=== PATIENT | male | born 1945 | race Caucasian/White ===

== ENCOUNTER 2021-11-14 02:49 | Emergency (ER) | payer MEDICARE, BC ==
[2021-11-14 04:32] LABS: BASO % 0.3 % (0.0-1.0); EOS # 0.2 10^3/uL (0.0-0.5); EOS % 3.4 % (0.0-3.0); HEMATOCRIT 35.4 % (42.0-52.0); HEMOGLOBIN 11.4 g/dl (13.5-17.5); LYMPH # 1.9 10^3/uL (1.5-5.0); LYMPH % 27.8 % (24.0-44.0); MEAN CORPUSCULAR HEMOGLOBIN 30.5 pg (27.0-33.0); MEAN CORPUSCULAR HGB CONC 32.2 g/dl (32.0-36.5); MEAN CORPUSCULAR VOLUME 94.7 fl (80.0-96.0); MONO # 0.7 10^3/uL (0.0-0.8); MONO % 10.6 % (2.0-8.0); NEUTROPHILS # 3.9 10^3/uL (1.5-8.5); NEUTROPHILS % 57.6 % (36.0-66.0); PLATELET COUNT, AUTOMATED 125 10^3/uL (150-450); RED BLOOD COUNT 3.74 10^6/uL (4.30-6.10); WHITE BLOOD COUNT 6.8 10^3/uL (4.0-10.0)
[2021-11-14 05:04] LABS: CALCIUM LEVEL 9.5 MG/DL (8.8-10.2); CREATININE FOR GFR 2.21 MG/DL (0.70-1.30); MAGNESIUM LEVEL 2.3 MG/DL (1.8-2.4); POTASSIUM SERUM 4.4 MEQ/L (3.5-5.1)
[2021-11-14 06:45] VITALS: BP 145/73
== END 2021-11-14 06:51 | disposition home or self-care (01) ==
LOC: M ED 02:49
DX: J69.0 Pneumonitis due to inhalation of food and vomit (principal); K20.80 Other esophagitis without bleeding; E11.9 Type 2 diabetes mellitus without complications; E78.5 Hyperlipidemia, unspecified; I10 Essential (primary) hypertension; N28.9 Disorder of kidney and ureter, unspecified; E03.9 Hypothyroidism, unspecified; F32.A Depression, unspecified; Z89.511 Acquired absence of right leg below knee; Z89.512 Acquired absence of left leg below knee; Z88.8 Allergy status to other drugs, medicaments and biological substances

== ENCOUNTER 2022-02-28 20:04 | Inpatient (IN) | payer MEDICARE, BC ==
[~2022-02-28] VITALS: Ht 132.1 cm; Wt 82.1 kg
[2022-02-28 21:10] LABS: BASO % 0.3 % (0.0-1.0); EOS # 0.2 10^3/uL (0.0-0.5); EOS % 2.5 % (0.0-3.0); HEMATOCRIT 38.7 % (42.0-52.0); HEMOGLOBIN 12.6 g/dl (13.5-17.5); LYMPH # 2.5 10^3/uL (1.5-5.0); LYMPH % 31.9 % (24.0-44.0); MEAN CORPUSCULAR HEMOGLOBIN 28.3 pg (27.0-33.0); MEAN CORPUSCULAR HGB CONC 32.6 g/dl (32.0-36.5); MONO # 0.7 10^3/uL (0.0-0.8); MONO % 9.1 % (2.0-8.0); NEUTROPHILS # 4.3 10^3/uL (1.5-8.5); NEUTROPHILS % 55.9 % (36.0-66.0); PLATELET COUNT, AUTOMATED 154 10^3/uL (150-450); RED BLOOD COUNT 4.45 10^6/uL (4.30-6.10); WHITE BLOOD COUNT 7.7 10^3/uL (4.0-10.0)
[2022-02-28 22:14] LABS: ALBUMIN 3.9 GM/DL (3.2-5.2); ALT/SGPT 27 U/L (12-78); BILIRUBIN,DIRECT 0.1 MG/DL (0.0-0.2); BILIRUBIN,TOTAL 0.5 MG/DL (0.2-1.0); BLOOD UREA NITROGEN 22 MG/DL (7-18); CALCIUM LEVEL 10.3 MG/DL (8.8-10.2); CARBON DIOXIDE LEVEL 24 MEQ/L (21-32); CHLORIDE LEVEL 107 MEQ/L (98-107); CREATININE FOR GFR 1.84 MG/DL (0.70-1.30); ETHYL ALCOHOL (ETHANOL) < 0.003 % (0.000-0.010); GLOMERULAR FILTRATION RATE 38.3 (>42); GLUCOSE, FASTING 61 MG/DL (70-100); POTASSIUM SERUM 3.7 MEQ/L (3.5-5.1); SODIUM LEVEL 138 MEQ/L (136-145); TOTAL PROTEIN 7.4 GM/DL (6.4-8.2)
[2022-02-28] MEDS ORDERED: METO1TAB32 PO (22:28)
[2022-02-28] MEDS ORDERED: ARIP10TA32 PO (22:28)
[2022-02-28] MEDS ORDERED: VENL75CA47 PO (22:28)
[2022-02-28] MEDS ORDERED: GABA-282 PO (22:28)
[2022-02-28] MEDS ORDERED: BUSP10TA PO (22:28)
[2022-02-28] MEDS ORDERED: LORA1TAB4 PO (22:28)
[2022-02-28] MEDS ORDERED: ATOR40TA75 PO (22:28)
[2022-02-28] MEDS ORDERED: med rec comment (22:28)
[2022-02-28] MEDS ORDERED: LEVO100T5 PO (22:28)
[2022-02-28] MEDS ORDERED: OMEP40CA5 PO (22:28)
[2022-02-28] MEDS ORDERED: HOME MED LIST COMPLETE! XX SCH (22:30)
[2022-02-28 23:23] LABS: RSV AMPLIFICATION NEGATIVE (NEGATIVE)
[2022-03-01] MEDS ORDERED: NS 1,000 ML IV SCH (00:10)
[2022-03-01] MEDS: LEVOTHYROXINE 100MCG TABLET (0.1MG) PO SCH (06:00)
[2022-03-01] MEDS: VENLAFAXINE **XR** 75MG CAPSULE PO SCH (08:41)
[2022-03-01] MEDS: ARIPiprazole 10 MG TAB PO SCH (08:41)
[2022-03-01] MEDS: HEPARIN SOD (PORCINE) 5000UNITS/ML 1ML VIAL/SYRINGE SC SCH ×2 (08:42→21:34)
[2022-03-01] MEDS: METOPROLOL SUCC *XL* 25MG TAB (TopROL *XL*) PO SCH (08:42)
[2022-03-01] MEDS: OMEPRAZOLE 20MG CAP PO SCH (08:42)
[2022-03-01] MEDS: ATORVASTATIN 20 MG TAB PO SCH (21:33)
[2022-03-01] MEDS: busPIRone 10 MG TAB PO PRN (21:33)
[2022-03-01 22:00] VITALS: BP 131/63
[2022-03-02 05:11] VITALS: BP 129/89
[2022-03-02] MEDS: LEVOTHYROXINE 100MCG TABLET (0.1MG) PO SCH (06:47)
[2022-03-02] MEDS: busPIRone 10 MG TAB PO PRN (06:47)
[2022-03-02] MEDS: VENLAFAXINE **XR** 75MG CAPSULE PO SCH ×2 (08:20→15:37)
[2022-03-02] MEDS: HEPARIN SOD (PORCINE) 5000UNITS/ML 1ML VIAL/SYRINGE SC SCH ×2 (08:21→20:29)
[2022-03-02] MEDS: ARIPiprazole 10 MG TAB PO SCH ×2 (08:21→15:37)
[2022-03-02] MEDS: OMEPRAZOLE 20MG CAP PO SCH ×2 (08:21→15:37)
[2022-03-02] MEDS: METOPROLOL SUCC *XL* 25MG TAB (TopROL *XL*) PO SCH ×2 (08:22→15:37)
[2022-03-02 09:31] LABS: HEMATOCRIT 38.1 % (42.0-52.0); HEMOGLOBIN 12.4 g/dl (13.5-17.5); MEAN CORPUSCULAR HEMOGLOBIN 28.4 pg (27.0-33.0); MEAN CORPUSCULAR HGB CONC 32.5 g/dl (32.0-36.5); MEAN CORPUSCULAR VOLUME 87.4 fl (80.0-96.0); PLATELET COUNT, AUTOMATED 134 10^3/uL (150-450); RED BLOOD COUNT 4.36 10^6/uL (4.30-6.10); WHITE BLOOD COUNT 7.7 10^3/uL (4.0-10.0)
[2022-03-02 10:10] LABS: ALBUMIN 3.7 GM/DL (3.2-5.2); BILIRUBIN,TOTAL 0.4 MG/DL (0.2-1.0); CALCIUM LEVEL 10.1 MG/DL (8.8-10.2); CREATININE FOR GFR 2.01 MG/DL (0.70-1.30); GLOMERULAR FILTRATION RATE 34.6 (>42); POTASSIUM SERUM 3.9 MEQ/L (3.5-5.1); TOTAL PROTEIN 6.5 GM/DL (6.4-8.2)
[2022-03-02 13:21] VITALS: BP 113/60
[2022-03-02] MEDS: LORazepam 1 MG TAB PO PRN (18:39)
[2022-03-02] MEDS: ATORVASTATIN 20 MG TAB PO SCH (20:29)
[2022-03-02 21:00] VITALS: BP 112/62
[2022-03-03 05:02] VITALS: BP 126/72
[2022-03-03] MEDS: LEVOTHYROXINE 100MCG TABLET (0.1MG) PO SCH (06:38)
[2022-03-03 07:25] LABS: HEMATOCRIT 39.5 % (42.0-52.0); HEMOGLOBIN 12.7 g/dl (13.5-17.5); MEAN CORPUSCULAR HEMOGLOBIN 28.3 pg (27.0-33.0); MEAN CORPUSCULAR HGB CONC 32.2 g/dl (32.0-36.5); PLATELET COUNT, AUTOMATED 140 10^3/uL (150-450); RED BLOOD COUNT 4.49 10^6/uL (4.30-6.10); WHITE BLOOD COUNT 8.8 10^3/uL (4.0-10.0)
[2022-03-03 07:53] LABS: CREATININE FOR GFR 2.18 MG/DL (0.70-1.30); GLOMERULAR FILTRATION RATE 31.5 (>42)
[2022-03-03 07:54] LABS: CALCIUM LEVEL 9.9 MG/DL (8.8-10.2)
[2022-03-03] MEDS: HEPARIN SOD (PORCINE) 5000UNITS/ML 1ML VIAL/SYRINGE SC SCH ×2 (10:43→22:37)
[2022-03-03] MEDS: METOPROLOL SUCC *XL* 25MG TAB (TopROL *XL*) PO SCH ×2 (10:44→13:06)
[2022-03-03] MEDS: ARIPiprazole 10 MG TAB PO SCH ×2 (10:44→13:05)
[2022-03-03] MEDS: VENLAFAXINE **XR** 75MG CAPSULE PO SCH ×2 (10:44→13:05)
[2022-03-03] MEDS: OMEPRAZOLE 20MG CAP PO SCH ×2 (10:44→13:05)
[2022-03-03 14:00] VITALS: BP_SYST 119; BP_SYST 151; BP_DIAS 69; BP_DIAS 70
[2022-03-03] MEDS: cefTRIAXone SOD 1 GM in D5W MINI-BAG PLUS 50 ML IV SCH (17:27)
[2022-03-03] MEDS: NS 1,000 ML IV SCH (17:27)
[2022-03-03 22:00] VITALS: BP 127/74
[2022-03-03] MEDS: ATORVASTATIN 20 MG TAB PO SCH ×2 (22:20→22:36)
[2022-03-03] MEDS: LORazepam 1 MG TAB PO PRN (22:38)
[2022-03-04] MEDS: NS 1,000 ML IV SCH ×2 (00:31→08:25)
[2022-03-04 02:00] VITALS: BP 113/71
[2022-03-04 06:00] VITALS: BP 139/64
[2022-03-04] MEDS: LEVOTHYROXINE 100MCG TABLET (0.1MG) PO SCH ×2 (06:00→06:26)
[2022-03-04 07:13] LABS: HEMATOCRIT 40.4 % (42.0-52.0); HEMOGLOBIN 13.1 g/dl (13.5-17.5); MEAN CORPUSCULAR HEMOGLOBIN 28.4 pg (27.0-33.0); MEAN CORPUSCULAR HGB CONC 32.4 g/dl (32.0-36.5); MEAN CORPUSCULAR VOLUME 87.4 fl (80.0-96.0); PLATELET COUNT, AUTOMATED 159 10^3/uL (150-450); RED BLOOD COUNT 4.62 10^6/uL (4.30-6.10); WHITE BLOOD COUNT 9.8 10^3/uL (4.0-10.0)
[2022-03-04 07:58] LABS: CALCIUM LEVEL 9.7 MG/DL (8.8-10.2); CREATININE FOR GFR 2.36 MG/DL (0.70-1.30); GLOMERULAR FILTRATION RATE 28.7 (>42); POTASSIUM SERUM 4.1 MEQ/L (3.5-5.1)
[2022-03-04] MEDS: VENLAFAXINE **XR** 75MG CAPSULE PO SCH (08:27)
[2022-03-04] MEDS: OMEPRAZOLE 20MG CAP PO SCH (08:27)
[2022-03-04] MEDS: METOPROLOL SUCC *XL* 25MG TAB (TopROL *XL*) PO SCH (08:28)
[2022-03-04] MEDS: ARIPiprazole 10 MG TAB PO SCH (08:28)
[2022-03-04 08:34] VITALS: BP 153/83
[2022-03-04] MEDS: HEPARIN SOD (PORCINE) 5000UNITS/ML 1ML VIAL/SYRINGE SC SCH ×2 (08:37→21:45)
[2022-03-04 12:35] LABS: FREE THYROXINE INDEX 3.9 % (1.4-3.8); THYROID STIMULATING HORMONE 0.247 uIU/ML (0.358-3.740); THYROXINE (T4) 10.3 UG/DL (4.5-12.0)
[2022-03-04] MEDS: D5W/0.45% SODIUM CHLORIDE 1,000 ML IV SCH ×3 (13:14→22:59)
[2022-03-04 14:02] VITALS: BP 148/82
[2022-03-04] MEDS: cefTRIAXone SOD 1 GM in D5W MINI-BAG PLUS 50 ML IV SCH (17:37)
[2022-03-04] MEDS: buPROPion **XL** TABLET 150MG (WELLBUTRIN XL) PO SCH (18:57)
[2022-03-04 20:40] VITALS: BP 128/64
[2022-03-04] MEDS: ATORVASTATIN 20 MG TAB PO SCH (21:46)
[2022-03-04] MEDS: LORazepam 1 MG TAB PO PRN (23:33)
[2022-03-05 06:00] VITALS: BP 125/65
[2022-03-05] MEDS: LEVOTHYROXINE 100MCG TABLET (0.1MG) PO SCH (06:14)
[2022-03-05] MEDS: D5W/0.45% SODIUM CHLORIDE 1,000 ML IV SCH (06:15)
[2022-03-05 07:26] LABS: HEMATOCRIT 35.3 % (42.0-52.0); HEMOGLOBIN 11.2 g/dl (13.5-17.5); MEAN CORPUSCULAR HEMOGLOBIN 28.7 pg (27.0-33.0); MEAN CORPUSCULAR HGB CONC 31.7 g/dl (32.0-36.5); MEAN CORPUSCULAR VOLUME 90.5 fl (80.0-96.0); PLATELET COUNT, AUTOMATED 131 10^3/uL (150-450); WHITE BLOOD COUNT 6.9 10^3/uL (4.0-10.0)
[2022-03-05 07:44] LABS: CALCIUM LEVEL 9.2 MG/DL (8.8-10.2); CREATININE FOR GFR 1.95 MG/DL (0.70-1.30); GLOMERULAR FILTRATION RATE 35.8 (>42); POTASSIUM SERUM 3.4 MEQ/L (3.5-5.1)
[2022-03-05] MEDS: VENLAFAXINE **XR** 75MG CAPSULE PO SCH (09:25)
[2022-03-05] MEDS: buPROPion **XL** TABLET 150MG (WELLBUTRIN XL) PO SCH (09:25)
[2022-03-05] MEDS: HEPARIN SOD (PORCINE) 5000UNITS/ML 1ML VIAL/SYRINGE SC SCH ×3 (09:25→21:29)
[2022-03-05] MEDS: OMEPRAZOLE 20MG CAP PO SCH (09:26)
[2022-03-05] MEDS: CIPROFLOXACIN 400 MG in IV 1 EA IV SCH ×2 (09:27→21:29)
[2022-03-05] MEDS: METOPROLOL SUCC *XL* 25MG TAB (TopROL *XL*) PO SCH (09:28)
[2022-03-05] MEDS: ARIPiprazole 10 MG TAB PO SCH (09:32)
[2022-03-05] MEDS: KCL 20MEQ IN D5W 1000ML 1,000 ML IV SCH ×2 (10:43→23:42)
[2022-03-05 15:14] VITALS: BP 116/55
[2022-03-05 19:46] VITALS: BP 128/69
[2022-03-05 20:00] VITALS: BP 128/69
[2022-03-05] MEDS: ATORVASTATIN 20 MG TAB PO SCH (21:28)
[2022-03-06 04:00] VITALS: BP 140/73
[2022-03-06] MEDS: LEVOTHYROXINE 100MCG TABLET (0.1MG) PO SCH ×2 (05:19→05:25)
[2022-03-06 06:39] LABS: HEMOGLOBIN 10.3 g/dl (13.5-17.5); MEAN CORPUSCULAR HEMOGLOBIN 28.7 pg (27.0-33.0); MEAN CORPUSCULAR HGB CONC 32.2 g/dl (32.0-36.5); MEAN CORPUSCULAR VOLUME 89.1 fl (80.0-96.0); PLATELET COUNT, AUTOMATED 102 10^3/uL (150-450); RED BLOOD COUNT 3.59 10^6/uL (4.30-6.10); WHITE BLOOD COUNT 6.3 10^3/uL (4.0-10.0)
[2022-03-06 07:10] LABS: CALCIUM LEVEL 8.8 MG/DL (8.8-10.2); CREATININE FOR GFR 1.72 MG/DL (0.70-1.30); GLOMERULAR FILTRATION RATE 41.4 (>42); POTASSIUM SERUM 3.8 MEQ/L (3.5-5.1)
[2022-03-06] MEDS: CIPROFLOXACIN 400 MG in IV 1 EA IV SCH ×2 (08:19→20:17)
[2022-03-06] MEDS: KCL 20MEQ IN D5W 1000ML 1,000 ML IV SCH ×2 (08:20→16:00)
[2022-03-06] MEDS: METOPROLOL SUCC *XL* 25MG TAB (TopROL *XL*) PO SCH (08:22)
[2022-03-06] MEDS: HEPARIN SOD (PORCINE) 5000UNITS/ML 1ML VIAL/SYRINGE SC SCH ×2 (08:23→10:30)
[2022-03-06] MEDS: OMEPRAZOLE 20MG CAP PO SCH (08:24)
[2022-03-06] MEDS: buPROPion **XL** TABLET 150MG (WELLBUTRIN XL) PO SCH (08:24)
[2022-03-06] MEDS: VENLAFAXINE **XR** 75MG CAPSULE PO SCH (08:24)
[2022-03-06] MEDS: ARIPiprazole 10 MG TAB PO SCH (08:24)
[2022-03-06 14:00] VITALS: BP 119/57
[2022-03-06 20:00] VITALS: BP 109/57
[2022-03-06] MEDS: ATORVASTATIN 20 MG TAB PO SCH (20:17)
[2022-03-07] MEDS: KCL 20MEQ IN D5W 1000ML 1,000 ML IV SCH (01:02)
[2022-03-07 06:00] VITALS: BP 131/63
[2022-03-07] MEDS: LEVOTHYROXINE 100MCG TABLET (0.1MG) PO SCH (06:19)
[2022-03-07 07:35] LABS: HEMATOCRIT 33.1 % (42.0-52.0); HEMOGLOBIN 10.8 g/dl (13.5-17.5); MEAN CORPUSCULAR HEMOGLOBIN 28.9 pg (27.0-33.0); MEAN CORPUSCULAR HGB CONC 32.6 g/dl (32.0-36.5); MEAN CORPUSCULAR VOLUME 88.5 fl (80.0-96.0); PLATELET COUNT, AUTOMATED 118 10^3/uL (150-450); RED BLOOD COUNT 3.74 10^6/uL (4.30-6.10); WHITE BLOOD COUNT 6.5 10^3/uL (4.0-10.0)
[2022-03-07 08:12] LABS: CALCIUM LEVEL 9.3 MG/DL (8.8-10.2); CREATININE FOR GFR 1.67 MG/DL (0.70-1.30); GLOMERULAR FILTRATION RATE 42.8 (>42); POTASSIUM SERUM 4.1 MEQ/L (3.5-5.1)
[2022-03-07] MEDS: buPROPion **XL** TABLET 150MG (WELLBUTRIN XL) PO SCH (09:13)
[2022-03-07] MEDS: CIPROFLOXACIN 400 MG in IV 1 EA IV SCH ×2 (09:13→21:54)
[2022-03-07] MEDS: METOPROLOL SUCC *XL* 25MG TAB (TopROL *XL*) PO SCH (09:14)
[2022-03-07] MEDS: VENLAFAXINE **XR** 75MG CAPSULE PO SCH (09:15)
[2022-03-07] MEDS: ARIPiprazole 10 MG TAB PO SCH (09:15)
[2022-03-07] MEDS: OMEPRAZOLE 20MG CAP PO SCH (09:15)
[2022-03-07 14:00] VITALS: BP 124/61
[2022-03-07] MEDS ORDERED: COVID-19 VAC, BV (MODERNA)/PF 50 MCG/0.5 ML VIAL (EUA) IM.IMMUN ONE (14:00)
[2022-03-07 21:54] VITALS: BP 132/69
[2022-03-07] MEDS: ATORVASTATIN 20 MG TAB PO SCH (21:54)
[2022-03-08] MEDS: LEVOTHYROXINE 100MCG TABLET (0.1MG) PO SCH (05:28)
[2022-03-08 05:39] VITALS: BP 128/71
[2022-03-08 06:58] LABS: HEMOGLOBIN 11.2 g/dl (13.5-17.5); MEAN CORPUSCULAR HEMOGLOBIN 28.6 pg (27.0-33.0); MEAN CORPUSCULAR VOLUME 89.5 fl (80.0-96.0); PLATELET COUNT, AUTOMATED 123 10^3/uL (150-450); RED BLOOD COUNT 3.91 10^6/uL (4.30-6.10); WHITE BLOOD COUNT 7.4 10^3/uL (4.0-10.0)
[2022-03-08 07:21] LABS: CALCIUM LEVEL 9.7 MG/DL (8.8-10.2); CREATININE FOR GFR 1.74 MG/DL (0.70-1.30); GLOMERULAR FILTRATION RATE 40.8 (>42); POTASSIUM SERUM 4.1 MEQ/L (3.5-5.1)
[2022-03-08] MEDS: VENLAFAXINE **XR** 75MG CAPSULE PO SCH (09:43)
[2022-03-08] MEDS: ARIPiprazole 10 MG TAB PO SCH (09:43)
[2022-03-08] MEDS: CIPROFLOXACIN 400 MG in IV 1 EA IV SCH (09:43)
[2022-03-08] MEDS: OMEPRAZOLE 20MG CAP PO SCH (09:43)
[2022-03-08] MEDS: buPROPion **XL** TABLET 150MG (WELLBUTRIN XL) PO SCH (09:43)
[2022-03-08] MEDS: METOPROLOL SUCC *XL* 25MG TAB (TopROL *XL*) PO SCH (09:44)
[2022-03-08 12:08] LABS: ANTINUCLEAR ANTIBODIES DIRECT Negative (Negative)
[2022-03-08 14:00] VITALS: BP 163/85
[2022-03-08] MEDS: CIPROFLOXACIN 250MG TAB PO SCH (17:34)
[2022-03-08] MEDS: ATORVASTATIN 20 MG TAB PO SCH (21:33)
[2022-03-08 21:34] VITALS: BP 132/62
[2022-03-09 05:37] VITALS: BP 132/62
[2022-03-09] MEDS: CIPROFLOXACIN 250MG TAB PO SCH ×2 (05:53→17:49)
[2022-03-09] MEDS: LEVOTHYROXINE 100MCG TABLET (0.1MG) PO SCH (05:53)
[2022-03-09 07:55] LABS: HEMATOCRIT 36.2 % (42.0-52.0); HEMOGLOBIN 11.3 g/dl (13.5-17.5); MEAN CORPUSCULAR HGB CONC 31.2 g/dl (32.0-36.5); MEAN CORPUSCULAR VOLUME 89.8 fl (80.0-96.0); PLATELET COUNT, AUTOMATED 121 10^3/uL (150-450); RED BLOOD COUNT 4.03 10^6/uL (4.30-6.10); WHITE BLOOD COUNT 6.2 10^3/uL (4.0-10.0)
[2022-03-09 08:27] LABS: CALCIUM LEVEL 9.7 MG/DL (8.8-10.2); CREATININE FOR GFR 1.84 MG/DL (0.70-1.30); GLOMERULAR FILTRATION RATE 38.3 (>42); POTASSIUM SERUM 4.1 MEQ/L (3.5-5.1)
[2022-03-09 09:00] VITALS: BP 109/53
[2022-03-09] MEDS: METOPROLOL SUCC *XL* 25MG TAB (TopROL *XL*) PO SCH (09:00)
[2022-03-09] MEDS: VENLAFAXINE **XR** 75MG CAPSULE PO SCH (09:01)
[2022-03-09] MEDS: ARIPiprazole 10 MG TAB PO SCH (09:01)
[2022-03-09] MEDS: OMEPRAZOLE 20MG CAP PO SCH (09:01)
[2022-03-09] MEDS: buPROPion **XL** TABLET 150MG (WELLBUTRIN XL) PO SCH (09:01)
[2022-03-09] MEDS: ATORVASTATIN 20 MG TAB PO SCH (19:44)
[2022-03-09] MEDS: ACETAMINOPHEN TAB 650MG DOSE (2X325MG) PO PRN (19:48)
[2022-03-10] MEDS: LEVOTHYROXINE 100MCG TABLET (0.1MG) PO SCH (05:51)
[2022-03-10] MEDS: CIPROFLOXACIN 250MG TAB PO SCH ×2 (05:51→17:53)
[2022-03-10 06:00] VITALS: BP 133/83
[2022-03-10 07:04] LABS: HEMATOCRIT 36.9 % (42.0-52.0); MEAN CORPUSCULAR HEMOGLOBIN 28.6 pg (27.0-33.0); MEAN CORPUSCULAR HGB CONC 32.5 g/dl (32.0-36.5); MEAN CORPUSCULAR VOLUME 88.1 fl (80.0-96.0); PLATELET COUNT, AUTOMATED 126 10^3/uL (150-450); RED BLOOD COUNT 4.19 10^6/uL (4.30-6.10); WHITE BLOOD COUNT 6.9 10^3/uL (4.0-10.0)
[2022-03-10 07:24] LABS: CALCIUM LEVEL 9.9 MG/DL (8.8-10.2); CREATININE FOR GFR 2.18 MG/DL (0.70-1.30); GLOMERULAR FILTRATION RATE 31.5 (>42); POTASSIUM SERUM 4.2 MEQ/L (3.5-5.1)
[2022-03-10] MEDS: buPROPion **XL** TABLET 150MG (WELLBUTRIN XL) PO SCH (07:49)
[2022-03-10] MEDS: VENLAFAXINE **XR** 75MG CAPSULE PO SCH (07:49)
[2022-03-10] MEDS: ARIPiprazole 10 MG TAB PO SCH (07:49)
[2022-03-10] MEDS: METOPROLOL SUCC *XL* 25MG TAB (TopROL *XL*) PO SCH (07:50)
[2022-03-10] MEDS: OMEPRAZOLE 20MG CAP PO SCH (07:50)
[2022-03-10] MEDS: ATORVASTATIN 20 MG TAB PO SCH (21:36)
[2022-03-11] VITALS (8 sets, daily range): BP systolic 99–129; BP diastolic 56–70
[2022-03-11 05:53] LABS: HEMATOCRIT 35.3 % (42.0-52.0); HEMOGLOBIN 11.5 g/dl (13.5-17.5); MEAN CORPUSCULAR HEMOGLOBIN 28.7 pg (27.0-33.0); MEAN CORPUSCULAR HGB CONC 32.6 g/dl (32.0-36.5); PLATELET COUNT, AUTOMATED 135 10^3/uL (150-450); RED BLOOD COUNT 4.01 10^6/uL (4.30-6.10); WHITE BLOOD COUNT 7.4 10^3/uL (4.0-10.0)
[2022-03-11] MEDS: LEVOTHYROXINE 100MCG TABLET (0.1MG) PO SCH (06:13)
[2022-03-11] MEDS: CIPROFLOXACIN 250MG TAB PO SCH (06:13)
[2022-03-11 06:30] LABS: CALCIUM LEVEL 9.7 MG/DL (8.8-10.2); CREATININE FOR GFR 2.31 MG/DL (0.70-1.30); GLOMERULAR FILTRATION RATE 29.4 (>42); POTASSIUM SERUM 4.1 MEQ/L (3.5-5.1)
[2022-03-11] MEDS: OMEPRAZOLE 20MG CAP PO SCH (08:38)
[2022-03-11] MEDS: VENLAFAXINE **XR** 75MG CAPSULE PO SCH (08:38)
[2022-03-11] MEDS: ARIPiprazole 10 MG TAB PO SCH (08:38)
[2022-03-11] MEDS: buPROPion **XL** TABLET 150MG (WELLBUTRIN XL) PO SCH (08:38)
[2022-03-11] MEDS: METOPROLOL SUCC *XL* 25MG TAB (TopROL *XL*) PO SCH (08:39)
[2022-03-11] MEDS ORDERED: BISACODYL 5 MG TAB PO PRN (10:45)
[2022-03-11] MEDS ORDERED: MIRALAX *UNIT DOSE* 17GM PACKET PO PRN (10:45)
[2022-03-11] MEDS ORDERED: MOM 30ML SUSPENSION UDC PO PRN (10:45)
[2022-03-11] MEDS ORDERED: SENOKOT S TAB PO PRN (10:45)
[2022-03-11] MEDS: NS 0.45% 1,000 ML IV SCH ×2 (12:09→20:59)
[2022-03-11 14:12] LABS: HEMATOCRIT 35.7 % (42.0-52.0); HEMOGLOBIN 11.5 g/dl (13.5-17.5)
[2022-03-11 14:24] LABS: INR 1.08; PROTHROMBIN TIME 14.4 SECONDS (12.7-14.5)
[2022-03-11 14:25] LABS: PARTIAL THROMBOPLASTIN TIME 38.4 SECONDS (25.9-37.0)
[2022-03-11] MEDS ORDERED: GLUCAGON INJ 1MG VIAL SC PRN (14:40)
[2022-03-11] MEDS ORDERED: DEXTROSE 50% 50 ML SYRINGE IV PRN (14:40)
[2022-03-11] MEDS ORDERED: GLUCOSE 4GM CHEW TABLET PO PRN (14:40)
[2022-03-11 15:32] LABS: HEMOGLOBIN A1c 5.5 %
[2022-03-11] MEDS ORDERED: NALOXONE INJ 0.4MG/1ML VIAL (J2310 PER 1MG) IV PRN (15:55)
[2022-03-11] MEDS ORDERED: HYDROMORPHONE HCL 0.5 MG/ 0.5 ML SYRINGE (J1170 PER 1) IV ONE (16:15)
[2022-03-11] MEDS ORDERED: LIDOCAINE 2% 5ML JELLY UROJET As Ordered ONE (16:25)
[2022-03-11] MEDS ORDERED: fentaNYL 100 MCG/2 ML INJECTION As Ordered ONE (16:35)
[2022-03-11] MEDS ORDERED: MIDAZOLAM INJ 2MG/2ML VIAL (J2250 PER 1MG) As Ordered ONE (16:35)
[2022-03-11] MEDS ORDERED: BELLADONNA 16.2mg/OPIUM 60mg 1 EA SUPP PR PRN (16:35)
[2022-03-11] MEDS ORDERED: ceFAZolin SOD 2 GM in IV 1 EA IV ONE (17:00)
[2022-03-11] MEDS: INSULIN LISPRO (NovoLOG) PER UNIT SC SCH ×2 (17:30→21:00)
[2022-03-11 19:14] LABS: HEMATOCRIT 34.3 % (42.0-52.0); HEMOGLOBIN 11.1 g/dl (13.5-17.5)
[2022-03-11 19:53] LABS: CALCIUM LEVEL 9.3 MG/DL (8.8-10.2); CREATININE FOR GFR 2.97 MG/DL (0.70-1.30); POTASSIUM SERUM 5.1 MEQ/L (3.5-5.1)
[2022-03-11] MEDS: AUGMENTIN 500MG TAB PO SCH (21:00)
[2022-03-11] MEDS: ATORVASTATIN 20 MG TAB PO SCH (21:00)
[2022-03-11] MEDS: LORazepam 1 MG TAB PO PRN (21:00)
[2022-03-11] MEDS ORDERED: AMOXICILLIN 875 MG TAB PO SCH (21:00)
[2022-03-12] VITALS: BP 112/70
[2022-03-12] MEDS: MORPHINE 2 MG/ML 1ML VIAL IV PRN ×2 (00:31→05:51)
[2022-03-12 02:12] LABS: HEMOGLOBIN 9.6 g/dl (13.5-17.5)
[2022-03-12 04:00] VITALS: BP 138/63
[2022-03-12] MEDS: LEVOTHYROXINE 100MCG TABLET (0.1MG) PO SCH (05:50)
[2022-03-12] MEDS: NS 0.45% 1,000 ML IV SCH ×2 (05:55→17:39)
[2022-03-12] MEDS: INSULIN LISPRO (NovoLOG) PER UNIT SC SCH ×4 (07:30→21:00)
[2022-03-12 08:00] VITALS: BP 134/65
[2022-03-12 08:22] LABS: HEMATOCRIT 29.1 % (42.0-52.0); MEAN CORPUSCULAR HEMOGLOBIN 28.2 pg (27.0-33.0); MEAN CORPUSCULAR HGB CONC 30.9 g/dl (32.0-36.5); MEAN CORPUSCULAR VOLUME 91.2 fl (80.0-96.0); PLATELET COUNT, AUTOMATED 132 10^3/uL (150-450); RED BLOOD COUNT 3.19 10^6/uL (4.30-6.10); WHITE BLOOD COUNT 9.5 10^3/uL (4.0-10.0)
[2022-03-12] MEDS: OMEPRAZOLE 20MG CAP PO SCH (09:47)
[2022-03-12] MEDS: VENLAFAXINE **XR** 75MG CAPSULE PO SCH (09:47)
[2022-03-12] MEDS: METOPROLOL SUCC *XL* 25MG TAB (TopROL *XL*) PO SCH (09:48)
[2022-03-12] MEDS: AUGMENTIN 500MG TAB PO SCH (09:48)
[2022-03-12] MEDS: buPROPion **XL** TABLET 150MG (WELLBUTRIN XL) PO SCH (09:48)
[2022-03-12] MEDS: ARIPiprazole 10 MG TAB PO SCH (09:48)
[2022-03-12 12:00] VITALS: BP 100/51
[2022-03-12 13:55] LABS: HEMATOCRIT 28.2 % (42.0-52.0); HEMOGLOBIN 8.9 g/dl (13.5-17.5)
[2022-03-12 14:23] LABS: CALCIUM LEVEL 8.8 MG/DL (8.8-10.2); CREATININE FOR GFR 2.46 MG/DL (0.70-1.30); GLOMERULAR FILTRATION RATE 27.4 (>42); POTASSIUM SERUM 4.3 MEQ/L (3.5-5.1)
[2022-03-12] MEDS: ACETAMINOPHEN TAB 650MG DOSE (2X325MG) PO PRN ×2 (14:48→21:53)
[2022-03-12 15:59] VITALS: BP 100/52
[2022-03-12 19:43] VITALS: BP 110/58
[2022-03-12 20:03] LABS: HEMATOCRIT 25.3 % (42.0-52.0)
[2022-03-12] MEDS: ATORVASTATIN 20 MG TAB PO SCH (21:53)
[2022-03-12 22:55] LABS: ALBUMIN 2.9 GM/DL (3.2-5.2); PHOSPHORUS LEVEL 3.8 MG/DL (2.5-4.9)
[2022-03-13] VITALS (9 sets, daily range): BP systolic 101–128; BP diastolic 51–64
[2022-03-13] MEDS: NS 0.45% 1,000 ML IV SCH (01:38)
[2022-03-13] MEDS: LEVOTHYROXINE 100MCG TABLET (0.1MG) PO SCH (05:25)
[2022-03-13 06:21] LABS: HEMATOCRIT 23.4 % (42.0-52.0); HEMOGLOBIN 7.3 g/dl (13.5-17.5); MEAN CORPUSCULAR HEMOGLOBIN 28.5 pg (27.0-33.0); MEAN CORPUSCULAR HGB CONC 31.2 g/dl (32.0-36.5); MEAN CORPUSCULAR VOLUME 91.4 fl (80.0-96.0); PLATELET COUNT, AUTOMATED 108 10^3/uL (150-450); RED BLOOD COUNT 2.56 10^6/uL (4.30-6.10); WHITE BLOOD COUNT 6.6 10^3/uL (4.0-10.0)
[2022-03-13 06:45] LABS: CALCIUM LEVEL 8.6 MG/DL (8.8-10.2); CREATININE FOR GFR 2.07 MG/DL (0.70-1.30); GLOMERULAR FILTRATION RATE 33.4 (>42); POTASSIUM SERUM 3.7 MEQ/L (3.5-5.1)
[2022-03-13] MEDS: INSULIN LISPRO (NovoLOG) PER UNIT SC SCH ×4 (08:31→20:25)
[2022-03-13] MEDS: METOPROLOL SUCC *XL* 25MG TAB (TopROL *XL*) PO SCH (08:36)
[2022-03-13] MEDS: buPROPion **XL** TABLET 150MG (WELLBUTRIN XL) PO SCH (09:22)
[2022-03-13] MEDS: ARIPiprazole 10 MG TAB PO SCH (09:22)
[2022-03-13] MEDS: VENLAFAXINE **XR** 75MG CAPSULE PO SCH (09:23)
[2022-03-13] MEDS: OMEPRAZOLE 20MG CAP PO SCH (09:24)
[2022-03-13] MEDS: LORazepam 1 MG TAB PO PRN (13:04)
[2022-03-13] MEDS: ATORVASTATIN 20 MG TAB PO SCH (20:25)
[2022-03-14 05:49] LABS: HEMATOCRIT 28.5 % (42.0-52.0); MEAN CORPUSCULAR HEMOGLOBIN 28.5 pg (27.0-33.0); MEAN CORPUSCULAR HGB CONC 31.6 g/dl (32.0-36.5); MEAN CORPUSCULAR VOLUME 90.2 fl (80.0-96.0); PLATELET COUNT, AUTOMATED 123 10^3/uL (150-450); RED BLOOD COUNT 3.16 10^6/uL (4.30-6.10); WHITE BLOOD COUNT 5.9 10^3/uL (4.0-10.0)
[2022-03-14] MEDS: LEVOTHYROXINE 100MCG TABLET (0.1MG) PO SCH (05:52)
[2022-03-14 06:00] VITALS: BP 117/63
[2022-03-14 06:17] LABS: CALCIUM LEVEL 9.2 MG/DL (8.8-10.2); CREATININE FOR GFR 1.83 MG/DL (0.70-1.30); GLOMERULAR FILTRATION RATE 38.5 (>42); POTASSIUM SERUM 3.8 MEQ/L (3.5-5.1)
[2022-03-14] MEDS: INSULIN LISPRO (NovoLOG) PER UNIT SC SCH ×4 (07:30→21:00)
[2022-03-14 08:00] VITALS: BP 107/51
[2022-03-14] MEDS: buPROPion **XL** TABLET 150MG (WELLBUTRIN XL) PO SCH (08:42)
[2022-03-14] MEDS: VENLAFAXINE **XR** 75MG CAPSULE PO SCH (08:42)
[2022-03-14] MEDS: OMEPRAZOLE 20MG CAP PO SCH (08:42)
[2022-03-14] MEDS: ARIPiprazole 10 MG TAB PO SCH (08:42)
[2022-03-14 16:00] VITALS: BP 128/60
[2022-03-14 20:00] VITALS: BP 113/57
[2022-03-14] MEDS: ATORVASTATIN 20 MG TAB PO SCH (21:00)
[2022-03-15 04:00] VITALS: BP 141/70
[2022-03-15] MEDS: LEVOTHYROXINE 100MCG TABLET (0.1MG) PO SCH (06:00)
[2022-03-15 07:06] LABS: HEMATOCRIT 31.5 % (42.0-52.0); HEMOGLOBIN 10.5 g/dl (13.5-17.5); MEAN CORPUSCULAR HEMOGLOBIN 28.7 pg (27.0-33.0); MEAN CORPUSCULAR HGB CONC 33.3 g/dl (32.0-36.5); MEAN CORPUSCULAR VOLUME 86.1 fl (80.0-96.0); PLATELET COUNT, AUTOMATED 178 10^3/uL (150-450); RED BLOOD COUNT 3.66 10^6/uL (4.30-6.10)
[2022-03-15 07:27] VITALS: BP 144/68
[2022-03-15 07:40] LABS: CALCIUM LEVEL 10.4 MG/DL (8.8-10.2); CREATININE FOR GFR 1.92 MG/DL (0.70-1.30); GLOMERULAR FILTRATION RATE 36.4 (>42); POTASSIUM SERUM 4.2 MEQ/L (3.5-5.1)
[2022-03-15] MEDS: ARIPiprazole 10 MG TAB PO SCH (08:44)
[2022-03-15] MEDS: VENLAFAXINE **XR** 75MG CAPSULE PO SCH (08:44)
[2022-03-15] MEDS: OMEPRAZOLE 20MG CAP PO SCH (08:45)
[2022-03-15] MEDS: buPROPion **XL** TABLET 150MG (WELLBUTRIN XL) PO SCH (08:45)
[2022-03-15] MEDS: INSULIN LISPRO (NovoLOG) PER UNIT SC SCH ×4 (08:46→21:00)
[2022-03-15] MEDS: MIRALAX *UNIT DOSE* 17GM PACKET PO SCH (13:34)
[2022-03-15] MEDS: SENOKOT S TAB PO SCH ×2 (13:35→20:23)
[2022-03-15] MEDS: ATORVASTATIN 20 MG TAB PO SCH (20:24)
[2022-03-15 21:06] VITALS: BP 118/71
[2022-03-16 05:58] LABS: HEMATOCRIT 30.7 % (42.0-52.0); HEMOGLOBIN 9.9 g/dl (13.5-17.5); MEAN CORPUSCULAR HEMOGLOBIN 28.6 pg (27.0-33.0); MEAN CORPUSCULAR HGB CONC 32.2 g/dl (32.0-36.5); MEAN CORPUSCULAR VOLUME 88.7 fl (80.0-96.0); PLATELET COUNT, AUTOMATED 160 10^3/uL (150-450); RED BLOOD COUNT 3.46 10^6/uL (4.30-6.10); WHITE BLOOD COUNT 7.1 10^3/uL (4.0-10.0)
[2022-03-16 06:34] LABS: CALCIUM LEVEL 9.4 MG/DL (8.8-10.2); CREATININE FOR GFR 1.77 MG/DL (0.70-1.30); POTASSIUM SERUM 4.1 MEQ/L (3.5-5.1)
[2022-03-16] MEDS: LEVOTHYROXINE 100MCG TABLET (0.1MG) PO SCH (06:37)
[2022-03-16 07:46] VITALS: BP 131/63
[2022-03-16] MEDS: SENOKOT S TAB PO SCH ×2 (08:42→20:32)
[2022-03-16] MEDS: ARIPiprazole 10 MG TAB PO SCH (08:42)
[2022-03-16] MEDS: INSULIN LISPRO (NovoLOG) PER UNIT SC SCH ×4 (08:42→20:29)
[2022-03-16] MEDS: MIRALAX *UNIT DOSE* 17GM PACKET PO SCH (08:42)
[2022-03-16] MEDS: buPROPion **XL** TABLET 150MG (WELLBUTRIN XL) PO SCH (08:43)
[2022-03-16] MEDS: OMEPRAZOLE 20MG CAP PO SCH (08:43)
[2022-03-16] MEDS: VENLAFAXINE **XR** 75MG CAPSULE PO SCH (08:43)
[2022-03-16 14:03] VITALS: BP 112/54
[2022-03-16] MEDS: ATORVASTATIN 20 MG TAB PO SCH (20:32)
[2022-03-17] MEDS: LEVOTHYROXINE 100MCG TABLET (0.1MG) PO SCH (05:48)
[2022-03-17 06:00] VITALS: BP 119/65
[2022-03-17 06:09] LABS: HEMATOCRIT 31.5 % (42.0-52.0); HEMOGLOBIN 10.1 g/dl (13.5-17.5); MEAN CORPUSCULAR HEMOGLOBIN 28.4 pg (27.0-33.0); MEAN CORPUSCULAR HGB CONC 32.1 g/dl (32.0-36.5); MEAN CORPUSCULAR VOLUME 88.5 fl (80.0-96.0); PLATELET COUNT, AUTOMATED 161 10^3/uL (150-450); RED BLOOD COUNT 3.56 10^6/uL (4.30-6.10); WHITE BLOOD COUNT 7.5 10^3/uL (4.0-10.0)
[2022-03-17 06:43] LABS: CALCIUM LEVEL 9.4 MG/DL (8.8-10.2); CREATININE FOR GFR 1.77 MG/DL (0.70-1.30); POTASSIUM SERUM 4.1 MEQ/L (3.5-5.1)
[2022-03-17] MEDS: INSULIN LISPRO (NovoLOG) PER UNIT SC SCH ×4 (07:30→20:52)
[2022-03-17] MEDS: MIRALAX *UNIT DOSE* 17GM PACKET PO SCH (09:37)
[2022-03-17] MEDS: SENOKOT S TAB PO SCH ×2 (09:37→20:00)
[2022-03-17] MEDS: buPROPion **XL** TABLET 150MG (WELLBUTRIN XL) PO SCH (09:37)
[2022-03-17] MEDS: OMEPRAZOLE 20MG CAP PO SCH (09:37)
[2022-03-17] MEDS: VENLAFAXINE **XR** 75MG CAPSULE PO SCH (09:37)
[2022-03-17] MEDS: ARIPiprazole 10 MG TAB PO SCH (09:38)
[2022-03-17] MEDS: ATORVASTATIN 20 MG TAB PO SCH (20:00)
[2022-03-18] MEDS: LEVOTHYROXINE 100MCG TABLET (0.1MG) PO SCH (05:40)
[2022-03-18 05:55] LABS: HEMATOCRIT 31.2 % (42.0-52.0); HEMOGLOBIN 10.2 g/dl (13.5-17.5); MEAN CORPUSCULAR HGB CONC 32.7 g/dl (32.0-36.5); MEAN CORPUSCULAR VOLUME 88.6 fl (80.0-96.0); PLATELET COUNT, AUTOMATED 171 10^3/uL (150-450); RED BLOOD COUNT 3.52 10^6/uL (4.30-6.10); WHITE BLOOD COUNT 6.7 10^3/uL (4.0-10.0)
[2022-03-18 06:00] VITALS: BP 108/63
[2022-03-18 06:30] LABS: CALCIUM LEVEL 9.4 MG/DL (8.8-10.2); CREATININE FOR GFR 1.78 MG/DL (0.70-1.30); GLOMERULAR FILTRATION RATE 39.8 (>42)
[2022-03-18] MEDS: ARIPiprazole 10 MG TAB PO SCH (08:45)
[2022-03-18] MEDS: buPROPion **XL** TABLET 150MG (WELLBUTRIN XL) PO SCH (08:45)
[2022-03-18] MEDS: SENOKOT S TAB PO SCH ×2 (08:45→22:02)
[2022-03-18] MEDS: VENLAFAXINE **XR** 75MG CAPSULE PO SCH (08:45)
[2022-03-18] MEDS: INSULIN LISPRO (NovoLOG) PER UNIT SC SCH ×4 (08:45→21:00)
[2022-03-18] MEDS: OMEPRAZOLE 20MG CAP PO SCH (08:45)
[2022-03-18] MEDS: MIRALAX *UNIT DOSE* 17GM PACKET PO SCH (08:46)
[2022-03-18] MEDS: LORazepam 1 MG TAB PO PRN ×2 (08:47→22:02)
[2022-03-18] MEDS: ATORVASTATIN 20 MG TAB PO SCH (22:02)
[2022-03-19] MEDS: ACETAMINOPHEN TAB 650MG DOSE (2X325MG) PO PRN ×2 (02:50→23:31)
[2022-03-19 05:52] VITALS: BP 118/56
[2022-03-19] MEDS: LEVOTHYROXINE 100MCG TABLET (0.1MG) PO SCH (05:59)
[2022-03-19] MEDS: INSULIN LISPRO (NovoLOG) PER UNIT SC SCH ×4 (07:30→21:00)
[2022-03-19] MEDS: MIRALAX *UNIT DOSE* 17GM PACKET PO SCH ×2 (09:00→09:10)
[2022-03-19] MEDS: VENLAFAXINE **XR** 75MG CAPSULE PO SCH (09:09)
[2022-03-19] MEDS: ARIPiprazole 10 MG TAB PO SCH (09:09)
[2022-03-19] MEDS: SENOKOT S TAB PO SCH ×2 (09:16→23:30)
[2022-03-19] MEDS: buPROPion **XL** TABLET 150MG (WELLBUTRIN XL) PO SCH (09:17)
[2022-03-19] MEDS: OMEPRAZOLE 20MG CAP PO SCH (09:17)
[2022-03-19] MEDS: ATORVASTATIN 20 MG TAB PO SCH (23:30)
[2022-03-19] MEDS: LORazepam 1 MG TAB PO PRN (23:31)
[2022-03-20 06:07] VITALS: BP 131/64
[2022-03-20] MEDS: LEVOTHYROXINE 100MCG TABLET (0.1MG) PO SCH (06:10)
[2022-03-20] MEDS: INSULIN LISPRO (NovoLOG) PER UNIT SC SCH ×4 (07:30→20:35)
[2022-03-20] MEDS: MIRALAX *UNIT DOSE* 17GM PACKET PO SCH ×3 (09:00→09:38)
[2022-03-20] MEDS: SENOKOT S TAB PO SCH ×2 (09:26→20:35)
[2022-03-20] MEDS: buPROPion **XL** TABLET 150MG (WELLBUTRIN XL) PO SCH (09:26)
[2022-03-20] MEDS: ARIPiprazole 10 MG TAB PO SCH (09:27)
[2022-03-20] MEDS: VENLAFAXINE **XR** 75MG CAPSULE PO SCH (09:27)
[2022-03-20] MEDS: OMEPRAZOLE 20MG CAP PO SCH (09:27)
[2022-03-20] MEDS: ATORVASTATIN 20 MG TAB PO SCH (20:35)
[2022-03-21] MEDS: LEVOTHYROXINE 100MCG TABLET (0.1MG) PO SCH (05:33)
[2022-03-21 06:00] VITALS: BP 119/72
[2022-03-21] MEDS: ARIPiprazole 10 MG TAB PO SCH (10:17)
[2022-03-21] MEDS: OMEPRAZOLE 20MG CAP PO SCH (10:17)
[2022-03-21] MEDS: INSULIN LISPRO (NovoLOG) PER UNIT SC SCH ×4 (10:18→21:00)
[2022-03-21] MEDS: SENOKOT S TAB PO SCH ×2 (10:18→21:45)
[2022-03-21] MEDS: buPROPion **XL** TABLET 150MG (WELLBUTRIN XL) PO SCH (10:18)
[2022-03-21] MEDS: VENLAFAXINE **XR** 75MG CAPSULE PO SCH (10:18)
[2022-03-21] MEDS: MIRALAX *UNIT DOSE* 17GM PACKET PO SCH (10:18)
[2022-03-21] MEDS: ATORVASTATIN 20 MG TAB PO SCH (21:45)
[2022-03-22] MEDS ORDERED: TAMSULOSIN 0.4 MG CAP PO ONE (01:05)
[2022-03-22] MEDS: LEVOTHYROXINE 100MCG TABLET (0.1MG) PO SCH (05:40)
[2022-03-22 06:00] VITALS: BP 120/72
[2022-03-22] MEDS: MIRALAX *UNIT DOSE* 17GM PACKET PO SCH (09:09)
[2022-03-22] MEDS: ARIPiprazole 10 MG TAB PO SCH (09:10)
[2022-03-22] MEDS: SENOKOT S TAB PO SCH ×2 (09:10→20:37)
[2022-03-22] MEDS: INSULIN LISPRO (NovoLOG) PER UNIT SC SCH ×4 (09:10→20:37)
[2022-03-22] MEDS: TAMSULOSIN 0.4 MG CAP PO SCH (09:10)
[2022-03-22] MEDS: OMEPRAZOLE 20MG CAP PO SCH (09:10)
[2022-03-22] MEDS: VENLAFAXINE **XR** 75MG CAPSULE PO SCH (09:10)
[2022-03-22] MEDS: buPROPion **XL** TABLET 150MG (WELLBUTRIN XL) PO SCH (09:11)
[2022-03-22] MEDS: ATORVASTATIN 20 MG TAB PO SCH (20:37)
[2022-03-23 06:00] VITALS: BP 101/67
[2022-03-23] MEDS: LEVOTHYROXINE 100MCG TABLET (0.1MG) PO SCH (06:08)
[2022-03-23] MEDS: OMEPRAZOLE 20MG CAP PO SCH (09:52)
[2022-03-23] MEDS: MIRALAX *UNIT DOSE* 17GM PACKET PO SCH (09:52)
[2022-03-23] MEDS: ARIPiprazole 10 MG TAB PO SCH (09:52)
[2022-03-23] MEDS: TAMSULOSIN 0.4 MG CAP PO SCH (09:52)
[2022-03-23] MEDS: INSULIN LISPRO (NovoLOG) PER UNIT SC SCH ×2 (09:52→13:19)
[2022-03-23] MEDS: buPROPion **XL** TABLET 150MG (WELLBUTRIN XL) PO SCH (09:52)
[2022-03-23] MEDS: SENOKOT S TAB PO SCH (09:52)
[2022-03-23] MEDS: VENLAFAXINE **XR** 75MG CAPSULE PO SCH (09:53)
[2022-03-23] MEDS ORDERED: FLOM0.4C39 PO (11:02)
[2022-03-23] MEDS ORDERED: SENN-52 PO (11:02)
[2022-03-23] MEDS ORDERED: MIRA1POW3 PO (11:02)
[2022-03-23] MEDS ORDERED: BUPR150T12 PO (11:02)
[2022-03-23] MEDS: LORazepam 1 MG TAB PO PRN (16:15)
== END 2022-03-23 16:22 | disposition home health service (06) | DRG 91 ==
LOC: M ED 20:04 → M ED INP 20:05 → ENRESERV 03-01 11:36 → M MSPAV 03-01 13:47 → OBSVTOIN 03-02 17:27 → M MSPAV 03-03 22:52 → M PCU 03-11 14:52 → M MSPAV 03-16 13:39
PROVIDERS: ADMIT Internal Medicine; ATTEND General Practice
PROC: 0TCB8ZZ Extirpation of Matter from Bladder, Via Natural or Artificial Opening Endoscopic (ICD-10-PCS; 2022-03-11)
PROC: 0T9B80Z Drainage of Bladder with Drainage Device, Via Natural or Artificial Opening Endoscopic (ICD-10-PCS; 2022-03-11)
PROC: 3E1K88Z Irrigation of Genitourinary Tract using Irrigating Substance, Via Natural or Artificial Opening Endoscopic (ICD-10-PCS; 2022-03-11)
PROC: 30233N1 Transfusion of Nonautologous Red Blood Cells into Peripheral Vein, Percutaneous Approach (ICD-10-PCS; principal; 2022-03-13)
DX: R29.6 Repeated falls (principal); G92.8 Other toxic encephalopathy; E87.0 Hyperosmolality and hypernatremia; N17.9 Acute kidney failure, unspecified; E87.20 Acidosis, unspecified; N39.0 Urinary tract infection, site not specified; N11.8 Other chronic tubulo-interstitial nephritis; D62 Acute posthemorrhagic anemia; F03.90 Unspecified dementia, unspecified severity, without behavioral disturbance, psychotic disturbance, mood disturbance, and anxiety; F31.9 Bipolar disorder, unspecified; I12.9 Hypertensive chronic kidney disease with stage 1 through stage 4 chronic kidney disease, or unspecified chronic kidney disease; E11.22 Type 2 diabetes mellitus with diabetic chronic kidney disease; N18.30 Chronic kidney disease, stage 3 unspecified; E11.40 Type 2 diabetes mellitus with diabetic neuropathy, unspecified; R13.10 Dysphagia, unspecified; E78.5 Hyperlipidemia, unspecified; B95.2 Enterococcus as the cause of diseases classified elsewhere; E86.0 Dehydration; N40.1 Benign prostatic hyperplasia with lower urinary tract symptoms; E11.51 Type 2 diabetes mellitus with diabetic peripheral angiopathy without gangrene; E87.6 Hypokalemia; N36.5 Urethral false passage; R31.0 Gross hematuria; E03.9 Hypothyroidism, unspecified; R33.9 Retention of urine, unspecified; T42.4X5A Adverse effect of benzodiazepines, initial encounter; Z79.890 Hormone replacement therapy; Z79.899 Other long term (current) drug therapy; Z89.612 Acquired absence of left leg above knee; Z89.511 Acquired absence of right leg below knee; Z88.8 Allergy status to other drugs, medicaments and biological substances; Z87.891 Personal history of nicotine dependence; Z86.16 Personal history of COVID-19